=== PATIENT | male | born 1975 | race Caucasian/White ===

== ENCOUNTER 2022-12-30 16:47 | Emergency (ER) | payer OTHER, SELFPAY ==
[2022-12-30 17:00] VITALS: BP 139/79; PULSE 58; RESP 16; TEMP 36.4; O2SAT 99
--- NOTE | 2022-12-30 17:47 | ED.NECK ---
HPI - Neck Pain/Injury General Chief Complaint: Neck Pain/Injury Stated Complaint: Pain Behind Lt Ear,Lt Arm and Leg Tingling Time Seen by Provider: 12/30/22 16:50 Source: patient Mode of arrival: ambulatory Limitations: no limitations History of Present Illness HPI Narrative: 47-year-old male presents to [facility] with complaints of pain to left side of his neck for the past 2-3 weeks; patient reports he then started with weakness and achiness to his left arm and numbness and tingling to his left upper thigh today at 11:00 a.m.. Patient denies recent injury. Patient reports that he also has had urinary incontinence at night for the past 5-7 days. Patient reports that he has a back injury that occurred a few years ago. Patient reports he also had left sciatic issues in the past that has since resolved. Patient denies fever, body aches, chills, nausea, vomiting or diarrhea MD complaint: neck pain Onset (ago): week(s) (2-3) Quality: tingling Associated symptoms: numbness, tingling and weakness Treatments prior to arrival: acetaminophen and ibuprofen Related Data Home Medications Medication Instructions Recorded Confirmed No Home Medications 12/30/22 12/30/22 Allergies Allergy/AdvReac Type Severity Reaction Status Date / Time No Known Allergies Allergy Unverified 06/05/11 19:39 Review of Systems Constitutional: Constitutional: Denies chills, Denies fatigue, Denies fever(s) and Reports weakness Comments: Weakness to left arm ENT: Denies vertigo and Denies dizziness Cardiovascular: Cardiovascular: Denies chest pain Respiratory: Respiratory: Denies chest congestion, Denies cough, Denies dyspnea and Denies wheezing Gastrointestinal: Gastrointestinal: Denies diarrhea and Denies vomiting Genitourinary: Genitourinary: Reports urinary incontinence Musculoskeletal: Comments: Left-sided neck pain; weakness to left arm, numbness and tingling to left upper thigh Integumentary/Breasts: Skin/Breast: Denies pruritus Neurologic: Denies vertigo, Denies dizziness, Denies syncope and Denies headache(s) PMFSH Comments At time of signature, I agree with nursing past medical, surgical, social and family history. There is no relevant family history pertinent to the presenting complaint. Exam Const: General: healthy appearing and no acute distress Nutritional Appearance: well nourished Orientation/consciousness: patient oriented x3 Limitations: no limitations HENMT: Head: normal to inspection Eyes: Conjunctivae: conjunctivae normal Neck: Neck: normal visual inspection, no lymphadenopathy and no meningeal signs Other: Pain noted to left upper neck upon palpation; no erythema, bruising or signs of infection noted Resp: Effort & Inspection: normal respiratory effort and not labored Auscultation: clear to auscultation bilaterally, no crackles, no rales and no rhonchi Cardio: Rate: regular rate Rhythm: regular rhythm Heart sounds: no murmurs Back/Spine/Pelvis: Back: no CVA tenderness Skin: General skin exam: normal color Rashes: no rashes Wounds: no wounds Neuro: General: patient oriented x3, moves all extremities and no meningeal signs Speech: normal speech Gait exam (Neuro): Normal gait present Other: Hand grasps were equal and strong Extrem: General: normal to inspection, no clubbing, cyanosis or edema and no pedal edema Psych: Affect: normal affect Attitude: cooperative Course Course Level of Care: Express Care Visit Vital Signs Vital signs: Vital Signs Temperature 36.4 C L 12/30/22 17:00 Pulse Rate 58 L 12/30/22 17:00 Respiratory Rate 16 12/30/22 17:00 Blood Pressure 139/79 12/30/22 17:00 Pulse Oximetry 99 12/30/22 17:00 Oxygen Delivery Room Air 12/30/22 17:00 Temperature 36.4 C L 12/30/22 17:00 Pulse Rate 58 L 12/30/22 17:00 Respiratory Rate 16 12/30/22 17:00 Blood Pressure 139/79 12/30/22 17:00 Pulse Oximetry 99 12/30/22 17:00
== END 2022-12-30 17:50 | disposition short-term general hospital (02) ==
PROVIDERS: Emergency Provider Nurse Practitioner Family; PCP Nurse Practitioner Family
DX: M54.2 Cervicalgia (principal); M62.81 Muscle weakness (generalized); R20.0 Anesthesia of skin; R20.2 Paresthesia of skin; R32 Unspecified urinary incontinence
CPT/HCPCS: 99212; G0463

== ENCOUNTER 2022-12-30 18:04 | Emergency (ER) | payer OTHER, SELFPAY ==
--- NOTE | ~2022-12-30 | XR_ITS ---
EXAMINATION: XR chest 2V Exam Date/Time: 12/30/2022 18:35 CDT HISTORY: weakness Comparison: None. RESULT: Lines, tubes, and devices: None. Lungs and pleura: Scattered mild reticulonodular opacities and cuffing. Cardiomediastinal silhouette: Unremarkable. Other: No acute osseous or upper abdominal finding. IMPRESSION: Pulmonary opacities may represent bronchiolitis, as can be seen with atypical infection, asthma, aspi ration, and small airways disease. Reviewed, dictated and finalized at location K. IMPRESSION: Pulmonary opacities may represent bronchiolitis, as can be seen with atypical i nfection, asthma, aspiration, and small airways disease.
--- NOTE | ~2022-12-30 | CT_ITS ---
EXAMINATION: CTA brain carotid DATE: 12/30/2022 20:12 INDICATION: left neck pain, left side weakness TECHNIQUE: Computed tomographic angiography (CTA) of the head was performed without and with 100 mL O [id number] intravenous contrast. CTA of the neck was performed with intravenous contrast. Automated exposure control and iterative reconstruction technique were employed. The dose-length product was 1 762.57 mGy-cm. Maximum intensity projection and volume rendered 3D-reconstructions were created by jannie bonilla technologist on a separate workstation. COMPARISON: None. FINDINGS: CT BRAIN: No acute large vessel infarct, intracranial hemorrhage, mass, or hydrocephalus. Mucosal thickening in the bilateral maxillary and ethmoid sinuses. Trace right mastoid fluid. CTA HEAD: No large vessel occlusion, aneurysm, high flow vascular malformation, nidus or extravasation. Patent cerebral veins. Symmetric parenchymal enhancement. CTA NECK: Aortic arch and proximal great vessels: Bovine arch. No significant aortic dilation or calcification. Right common carotid, carotid bifurcation, and internal carotid artery: No plaque.There is 0% stenosi s of the proximal right internal carotid artery relative to normal distal artery lumen diameter (NASC ET criteria). Left common carotid, carotid bifurcation, and internal carotid artery: No plaque.There is 0% stenosis of the proximal left internal carotid artery relative to normal distal artery lumen diameter (NASCET criteria). Vertebral arteries: No significant plaque or stenosis. Left vertebral artery is dominant. The distal right vertebral artery terminates at the level of the cerebral arteries, a normal variant. Other findings: Degenerative changes at the bilateral TMJs. IMPRESSION: No acute intracranial process. No acute large vessel occlusion. No significant carotid or vertebral stenosis. Reviewed, dictated and finalized at location K.
[2022-12-30 18:07] VITALS: BP 138/112; PULSE 66; RESP 18; TEMP 36.2; O2SAT 100
--- NOTE | 2022-12-30 18:16 | ECG_ITS ---
Measurements Intervals [place] Rate: 58 P: 12 KS: 209 QRS: 13 QRSD: 90 T: 46 QT: 373 QTc: 367 Interpretive Statements SINUS BRADYCARDIA OTHERWISE WITHIN NORMAL LIMITS NO PREVIOUS ECG AVAILABLE FOR COMPARISON Electronically Signed On 12-31-2022 13:13:27 CDT by Favio Cordero M.D.
[2022-12-30 18:37] LABS: Basophils Absolute Auto 0.1 K/mm3 (0.0-0.1); Basophils Percent Auto 1.4 % (0.2-1.2); Eosinophils Absolute Auto 0.4 K/mm3 (0-0.3); Eosinophils Percent Auto 6.7 % (0-4.4); Hematocrit 42.3 % (42.0-52.0); Hemoglobin 14.7 g/dL (14.0-18.0); Immature Granulocyte Absolute 0.01 K/mm3 (0.00-0.031); Immature Granulocyte Percent A 0.2 % (0-0.5); Lymphocytes Percent Auto 34.2 % (18.3-44.2); Mean Corpuscular HGB Conc 34.8 g/dl (32-36); Mean Corpuscular Hemoglobin 29.6 pg (26-34); Mean Corpuscular Volume 85.3 fl (80-100); Mean Platelet Volume 9.4 fl (7.4-10.4); Monocytes Absolute Auto 0.4 K/mm3 (0.1-0.6); Monocytes Percent Auto 7.7 % (2.6-8.5); Neutrophils Absolute Auto 2.8 K/mm3 (1.3-6.7); Neutrophils Percent Auto 49.8 % (45.5-73.1); Platelet Count Result 231 k/mm3 (150-375); Red Blood Count 4.96 M/mm3 (4.6-6.20); Red Cell Distribution Width 12.3 % (11.5-14.5); White Blood Count 5.6 K/mm3 (4.5-10.0)
[2022-12-30 18:48] LABS: Alanine Aminotransferase 27 U/L (6-50); Albumin Level 4.7 g/dL (3.5-5.1); Alkaline Phosphatase 66 U/L (38-126); Anion Gap 10 mmol/L (8-16); Aspartate Amino Transferase 26 U/L (17-59); Bilirubin,Total 0.5 mg/dL (0.2-1.3); Blood Urea Nitrogen 14 mg/dL (9-20); Calcium 9.6 mg/dL (8.4-10.2); Carbon Dioxide 23 mmol/L (22-30); Chloride 107 mmol/L (98-107); Estimated CRCL calculation 103 ml/min; Estimated Glomerular Filt Rate > 60; Glucose 121 mg/dL (65-110); Potassium 3.7 mmol/L (3.4-5.0); Sodium 140 mmol/L (137-145)
[2022-12-30 19:39] LABS: Appearance Urine Clear (Clear); Bacteria Urine None Seen /hpf; Bilirubin Urine Negative (Negative); Blood Urine 1+ (Negative); Color Urine Yellow (Yellow); Glucose Urine UA Negative (Negative); Ketones Urine Negative (Negative); Leukocyte Esterase Ur Negative LEU/UL (Negative); Nitrate Urine Negative (Negative); Non Pathogenic Casts 0-2; Protein Urine Negative (Negative); RBC Urine 0-2 /hpf (0-2); Specific Grav Ur 1.021 (1.001-1.035); Squamous Epithelial Cell Urine None seen /hpf (Few); WBC Urine 0-5 /hpf
[2022-12-30 19:46] LABS: Add Urine Microscopic? YES
--- NOTE | 2022-12-30 20:17 | ED.GENADULT ---
HPI - General Adult General Chief complaint: Weakness Stated complaint: weakness/ neck pain/ LUE numbness Time Seen by Provider: 12/30/22 19:02 Source: patient and RN notes reviewed Mode of arrival: ambulatory Limitations: no limitations History of Present Illness HPI narrative: This is a 47 year old male who presents for evaluation of left neck pain . Patient has noticed throbbing and sharp pain to left neck just under his left ear. This has been present for over 1 month. He reports this throbbing pain may last for 15 minutes and resolve. He reports that pain seems to be recurring more often over past 2 weeks. He does not have the pain currently but he had a few minutes ago. He denies radiating pain. He denies headache, dizziness, blurred vision, nausea or vomiting. He states today he noticed his left elbow joint seemed off or weak. He also reports his left leg felt off. He denies numbness or tingling to his left arm. He reports short period of tingling to his left thigh. He denies arm pain or leg pain. He states he has dealt with lower back pain in the past but it has been been bothering him this week. He notes that he has woken up over the past few night with small amount of urination in his sleep. He denies any urinary issues during the day. Related Data Allergies Allergy/AdvReac Type Severity Reaction Status Date / Time No Known Allergies Allergy Unverified 06/05/11 19:39 Review of Systems Constitutional: Constitutional: Denies weakness Cardiovascular: Cardiovascular: Denies syncope, Denies rapid heart rate, Denies irregular heart rhythm, Denies leg edema and Denies dyspnea Respiratory: Respiratory: Denies chest congestion, Denies hemoptysis, Denies excessive phlegm production and Denies dyspnea Gastrointestinal: Gastrointestinal: Denies abdominal pain, Denies hematochezia, Denies diarrhea and Denies vomiting Genitourinary: Genitourinary: Denies hematuria, Denies dysuria, Denies penile discharge and Denies testicular pain Musculoskeletal: Musculoskeletal: Reports back pain, Denies joint swelling, Denies loss of height and Denies muscle weakness Neurologic: Denies syncope, Denies focal weakness and Denies weakness PMF Past Medical History Medical History (Updated 12/31/22 @ 00:06 by Background Daemon) Patient denies medical problems Social History Social History (Updated 12/30/22 @ 20:25 by Alise Mckay MD) Smoking status: Never smoker Exam Const: General: no acute distress and alert Nutritional Appearance: well nourished Orientation/consciousness: patient oriented x3 Limitations: no limitations HENMT: Head: normal to inspection Ears: external ears normal and TM's normal bilaterally Face/Nose/Sinus: Normal external nose present Face and sinus: normal facial exam and sinuses nontender Mouth: Yes Normal oral and palatal mucosa present, Yes lip normal and Yes moist mucous membranes Teeth and gingiva: dentition normal Throat: posterior oropharynx normal and uvula midline Eyes: Conjunctivae: conjunctivae normal Pupils: Equal, round and reactive pupils present EOM: EOMs intact bilaterally Chest: Chest palpation & inspection: normal inspection of the chest Resp: Effort & Inspection: normal respiratory effort Auscultation: clear to auscultation bilaterally Cardio: Rate: regular rate Rhythm: regular rhythm Heart sounds: no murmurs GI: GI Palp: Yes Soft to palpation, No Tenderness to palpation present (GI), No Guarding due to palpation present (GI) and No Rigid due to palpation Auscultation: normal bowel sounds Skin: General skin exam: normal color Rashes: no rashes Neuro: General: patient oriented x3, moves all extremities, no meningeal signs, no focal motor deficits and CN's II-XI intact bilaterally Cranial nerves: Yes CN's II-XII intact bilaterally Cognition (Neuro): normal cognition Speech: normal speech Gait exam (Neuro): Normal gait present Motor exam (neuro): [address]
[2022-12-30 21:00] VITALS: BP 134/95; PULSE 65; RESP 15; O2SAT 98
== END 2022-12-30 21:00 | disposition home or self-care (01) ==
PROVIDERS: Emergency Medicine; Emergency Provider General Practice; PCP Nurse Practitioner Family
DX: M54.2 Cervicalgia (principal); R00.1 Bradycardia, unspecified; R91.8 Other nonspecific abnormal finding of lung field
CPT/HCPCS: 36415; 70496; 70498; 71046; 80053; 81001; 85025; 93005; 99284; Q9967